=== PATIENT | female | born 1985 | race Caucasian/White ===

== ENCOUNTER 2021-08-28 02:29 | Emergency (ER) | payer OTHER ==
--- NOTE | 2021-08-28 02:57 | ED Physician Documentation ---
PD HPI HEAD INJURY - Stated complaint Stated Complaint: fell, hit head - Chief complaint Chief Complaint: Trauma Hd/Nk - History obtained from History obtained from: Patient - History of Present Illness Mechanism of head injury: Fell Where head injury occurred: Home - Additional information Additional information: Patient is a 36-year-old female with a history of diabetes presenting for evaluation of a fall this evening. Patient had 3 white claws and half a bottle of sangria. She was lying down on the couch. When she stood up to go to bed she felt lightheaded and fell down. She hit her head on the floor. She did not lose consciousness. She did check her glucose prior to arrival and it was 230.She currently denies any complaints. She does not use a blood thinner. Per her spouse who is with her, she has been acting appropriately. She denies headache, chest pain, difficulty breathing, vision changes, nausea or vomiting. Review of Systems Constitutional: denies: Fever Nose: denies: Congestion Cardiac: denies: Chest pain / pressure Respiratory: denies: Dyspnea, Cough GI: denies: Abdominal Pain, Vomiting : denies: Dysuria Skin: denies: Rash Musculoskeletal: denies: Back pain Neurologic: reports: Head injury. denies: Generalized weakness, Syncope PD PAST MEDICAL HISTORY - Present Medications Home Medications: Ambulatory Orders Medication Instructions Recorded Confirmed Insulin Glargine [Lantus Solostar] 0 unit SUBQ DAILY 08/28/21 08/28/21 Propranolol [Inderal] 10 mg PO 08/28/21 - Allergies Allergies/Adverse Reactions: Allergies Allergy/AdvReac Type Severity Reaction Status Date / Time Sulfa (Sulfonamide Allergy Rash Verified 08/28/21 02:40 Antibiotics) PD ED PE NORMAL - General General: Alert and oriented X 3, No acute distress, Well developed/nourished - HEENT HEENT: PERRL, EOMI, Ears normal (Normal TMs), Moist mucous membranes, Pharynx benign, Other (Right forehead abrasion) - Neck Neck: Supple, no meningeal sign, No bony TTP, C-Spine cleared by NEXUS criteria - Cardiac Cardiac: No murmur, Strong equal pulses, Other (Tachycardic, regular rate) - Respiratory Respiratory: No respiratory distress, Clear bilaterally - Abdomen Abdomen: Normal bowel sounds, Soft, Non tender, Non distended - Back Back: No spinal TTP - Derm Derm: Warm and dry - Extremities Extremities: No deformity, No tenderness to palpate - Neuro Neuro: Alert and oriented X 3, director state [facility] 2-12 intact, No motor deficit, No sensory deficit, Normal speech, Other (Normal gait) Eye Opening: Spontaneous Motor: Obeys Commands Verbal: Oriented GCS Score: 15 - Psych Psych: Normal mood Results - Vitals Vitals: Vital Signs - 24 hr 08/28/21 08/28/21 02:33 03:06 Temperature 36.3 C L 36.6 C Heart Rate 120 H 108 H Respiratory 18 16 Rate Blood Pressure 131/90 H 121/85 H O2 Saturation 98 97 Oxygen O2 Source Room air PD MEDICAL DECISION MAKING - ED course Complexity details: re-evaluated patient, d/w patient, d/w family ED course: Patient with head injury after standing up too fast in the setting of alcohol use this evening. She has a mild right forehead abrasion. Per MIPS as she does not have LOC or amnesia, CT not indicated. Her neuro exam here is normal. She has no bony tenderness. Discussed risks and benefits of CT scan and patient with spouse at bedside are both comfortable with holding off on CT imaging At this time.She is slightly tachycardic which she reports is normal for her. She denies dizziness or lightheadedness. She has been able to ambulate into the ER without difficulty. She denies any chest pain or shortness of breath. She does not appear to be clinically dehydrated. Although she has had alcohol use this evening she is clinically sober and appropriate for discharge. Departure - Departure Disposition: 01 Home, Self Care Clinical Impression: Head injury Qualifiers: Encounter type: initial encounter Qualified Code(s): S09.90XA - Unspecified injury of head, initial encounter Condition: Stable Instructions: ED Head Injury Closed Comments: You were evaluated after a head injury. Based on your assessment, I do not think you need an emergent a head CT at this evening. The likelihood of a serious intracranial injury is very low As you are otherwise acting appropriately. Please take caution when changing positions, particularly going from sitting to standing, especially in the setting of alcohol use. If you have any worsening symptoms such as headache, vomiting, confusion, Weakness on 1 side of your body Or with any others please consider return to the emergency department. Discharge Date/Time: 08/28/21 03:19
[2021-08-28 03:07] VITALS: BP 121/85
== END 2021-08-28 03:19 | disposition home or self-care (01) ==
LOC: ED 02:29
DX: S09.90XA Unspecified injury of head, initial encounter (principal); W08.XXXA Fall from other furniture, initial encounter
CPT/HCPCS: 99281; 99282